=== PATIENT | female | born 2000 | race Two or more races ===

== ENCOUNTER 2023-04-22 19:33 | Emergency (ER) | payer OTHER ==
[~2023-04-22] VITALS: Ht 154.9 cm; Wt 40.8 kg
[2023-04-22 20:51] LABS: HEMATOCRIT 38.7 % (36.0-45.00); HEMOGLOBIN 12.7 g/dL (12.0-15.00); MEAN CELL VOLUME 81.2 fL (80.00-100.00); MEAN CORPUSCULAR HEMOGLOBIN 26.8 pg (27.00-32.0); MEAN CORPUSCULAR HGB CONC 32.9 g/dl (32.0-36.0); PLATELET COUNT 232 K/uL (150-450); RED BLOOD COUNT 4.76 M/uL (4.00-6.00); RED CELL DISTRIBUTION WIDTH 14.4 % (11.5-14.5)
[2023-04-22 21:11] LABS: ALKALINE PHOSPHATASE 52 U/L (50-136); ALT/SGPT 20 U/L (12-78); AMYLASE 109 U/L (25-115); ANION GAP 16 (10.0-20.0); AST/SGOT 21 U/L (15-37); BILIRUBIN TOTAL 2.01 mg/dL (0.3-1.2); BLOOD UREA NITROGEN 12 mg/dL (7-18); BUN CREA RATIO 10 (7.0-25.0); CALCIUM 10.5 mg/dL (8.5-10.1); CARBON DIOXIDE 19 mEq/L (21-32); CHLORIDE 103 mmol/L (98-107); CREATININE SERUM 1.24 mg/dL (0.55-1.02); GFR 54.09; GLOBULINA 4.9 G/DL (2.4-3.5); GLUCOSE FASTING 135 mg/dL (65-100); LIPASE 24 U/L (13-75); OSMOLALITY SERUM 272 MOSM/KG (275-295); POTASSIUM 3.46 mEq/L (3.5-5.1); SODIUM 135 mmol/L (136-145); TOTAL PROTEIN 8.9 gm/dL (6.4-8.2)
[2023-04-22 21:15] LABS: HCG QUANTITATIVE < 1 mUI/mL (1-3)
[2023-04-22 23:09] LABS: PH,URINE 6.5 (5.0-8.0); URINE APPEARANCE Cloudy; URINE BILIRRUBIN Negative (NEGATIVE); URINE BLOOD Small; URINE COLOR Yellow; URINE GLUCOSE Negative (NEGATIVE); URINE LEUKOCYTE Moderate; URINE NITRATE Negative; URINE PROTEIN 30 (NEGATIVE)
[2023-04-22 23:10] LABS: URINE EPITHELIAL CELLS 22.4 uL (0.0-38.8); URINE WBC 766.3 uL (0.0-23.2)
[2023-04-22 23:57] LABS: URINE BACTERIA > 9821.2 uL (0.0-1933)
[2023-04-23 02:12] LABS: HEMATOCRIT 36.1 % (36.0-45.00); MEAN CELL VOLUME 82.1 fL (80.00-100.00); MEAN CORPUSCULAR HEMOGLOBIN 26.6 pg (27.00-32.0); MEAN CORPUSCULAR HGB CONC 32.4 g/dl (32.0-36.0); PLATELET COUNT 232 K/uL (150-450); RED BLOOD COUNT 4.39 M/uL (4.00-6.00); RED CELL DISTRIBUTION WIDTH 14.1 % (11.5-14.5)
[2023-04-23 02:13] LABS: HEMOGLOBIN 11.7 g/dL (12.0-15.00)
[2023-04-23 08:13] LABS: HEMATOCRIT 34.6 % (36.0-45.00); HEMOGLOBIN 11.4 g/dL (12.0-15.00); MEAN CELL VOLUME 81.9 fL (80.00-100.00); MEAN CORPUSCULAR HEMOGLOBIN 26.9 pg (27.00-32.0); MEAN CORPUSCULAR HGB CONC 32.8 g/dl (32.0-36.0); PLATELET COUNT 215 K/uL (150-450); RED BLOOD COUNT 4.23 M/uL (4.00-6.00); RED CELL DISTRIBUTION WIDTH 14.3 % (11.5-14.5)
== END 2023-04-23 11:53 | disposition home or self-care (01) ==
LOC: EDBD 19:34 → ER 19:34
PROVIDERS: General Practice
DX: N39.0 Urinary tract infection, site not specified (principal); B96.89 Other specified bacterial agents as the cause of diseases classified elsewhere; R11.10 Vomiting, unspecified; Z20.822 Contact with and (suspected) exposure to COVID-19